=== PATIENT | male | born 1975 | race Caucasian/White ===

== ENCOUNTER 2023-01-08 12:48 | Outpatient (CLI) | payer BC, SELFPAY ==
--- NOTE | ~2023-01-08 | MR_ITS ---
EXAMINATION: MR knee LT wo con DATE: 01/08/2023 13:34 INDICATION: Acute medial meniscal tear of the left knee. TECHNIQUE: Magnetic resonance imaging (MRI) of the left knee was performed without intravenous contra st. Sequences included coronal PD-weighted FSE, coronal PD-weighted FS FSE, sagittal T2-weighted FSE , sagittal PD-weighted FS FSE and axial PD weighted fat saturated FSE. COMPARISON: None. FINDINGS: Medial compartment: Medial meniscus is normal. Partial-thickness chondral ulceration and deep fissuring with underlying s ubarticular edema-like marrow signal change at the anterior weightbearing medial femoral condyle. Les s severe shallow chondral ulceration without degenerative subchondral changes along the central weigh tbearing medial femoral condyle. Lateral compartment: Lateral meniscus is normal. Articular cartilage is normal. Patellofemoral compartment: Chondral fissuring involving greater than 50% the cartilage thickness at the cephalad aspect of the m edial patellar facet, the central aspect of the the patellar apical ridge and immediately adjacent la teral facet and more prominently with subarticular edema-like signal change along the inferior margin of the lateral patellar facet. Additional chondral ulceration and deep fissuring with underlying cor tical irregularity and edema-like signal change at the inferior aspect of the medial trochlea and tro chlear groove. Cartilage at the lateral trochlea is normal. Ligaments and tendons: Anterior and posterior cruciate ligaments are normal. The medial collateral ligament and fibular kaylan ateral ligament complex are normal. Mild distal quadriceps tendinopathy. Patellar tendon is normal. T he visualized medial and lateral hamstring tendons as well as the iliotibial band are normal. Fluid: Moderate-sized left knee joint effusion. No loose osteochondral bodies identified. Mild edema in the soft tissues at the periphery of a small Menard's cyst. Osseous/other: Bone alignment is normal. No fracture or pathologic marrow replacing process. IMPRESSION: 1. Mild osteoarthritis with regions of high-grade chondromalacia in the medial and patellofemoral com partments. 2. Moderate-sized left knee joint effusion and small Menard's cyst. 2. Normal menisci and stabilizing ligaments of the knee. Reviewed, dictated and finalized at location A. IMPRESSION: 1. 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 2. Moderate-sized left knee joint effusion and small Menard's cyst. 2. Normal menisci and stabilizing ligaments of the knee.
== END 2023-01-08 12:49 ==
PROVIDERS: PCP Student in an Organized Health Care Education/Training Program; Visit Provider Physician Assistant
DX: S83.242A Other tear of medial meniscus, current injury, left knee, initial encounter (principal); M71.22 Synovial cyst of popliteal space [Baker], left knee; X58.XXXA Exposure to other specified factors, initial encounter; M17.12 Unilateral primary osteoarthritis, left knee; M25.462 Effusion, left knee
CPT/HCPCS: 73721

== ENCOUNTER 2023-11-23 02:50 | Day surgery (SDC) | payer BC, SELFPAY ==
[2023-11-05 11:56] VITALS: BMI 24.1
[2023-11-23 10:01] VITALS: BP 127/84; PULSE 50; RESP 18; TEMP 36.1; O2SAT 99; BMI 21.7
--- NOTE | 2023-11-23 10:07 | WPDANESEPPF ---
Anes - Initial Pre Proc Eval Procedure: Operation Date: 11/23/23 11:00 Proposed Procedures p Screening Colonoscopy - Anthony Kent MD Date/Time: 11/23/23 10:07 Surgeon: Anthony Kent MD Pre Op Diagnosis: neoplasm screening Patient Data Age: 48 Gender: M Height: 1.78 m Weight: 68.7 kg Last Vital Signs Temp 97.0 F L 11/23/23 10:01 Pulse 50 L 11/23/23 10:01 Resp 18 11/23/23 10:01 BP 127/84 11/23/23 10:01 Pulse Ox 99 11/23/23 10:01 O2 Del Method Room Air 11/23/23 10:01 Allergies Allergy/AdvReac Type Severity Reaction Status Date / Time Penicillins Allergy Severe Shakiness Verified 11/23/23 10:00 adhesive tape Allergy Intermediate Rash Verified 11/23/23 10:00 Home Medications Medication Instructions Recorded Confirmed Type Adults Multivitamin 1 tab-cap PO DAILY 11/05/23 11/23/23 History meloxicam 15 mg tablet 15 mg PO DAILY PRN KNEE PAIN 11/05/23 11/23/23 History Patient hx anesthesia problems: none Family hx anesthesia problems: none Results Review: All pre-operative results and documents have been reviewed as part of the pre-operative evaluation. [facility] Family History Family History Other Family history of coronary artery disease Family history of malignant neoplasm Hypertension Malignant neoplasm of prostate Social History Social History Smoking status: Former smoker Tobacco type: cigarettes Smoking end date: 03/09/12 Alcohol intake: current Drinks per week: 8 Alcohol use details: BEERS Substance use: never Substance use type: does not use Living arrangements: with family Spiritual care concerns: No Anes - Eval Final PreProcedure Day of Procedure 11/23/23 10:07 Patient weight: normal Heart: regular rate and rhythm Lungs: clear to auscultation Airway: Mallampati scale Neurological: alert and oriented Last oral intake: >/= 8 hours ASA classification: I Emergent: no Anesthetic plan: proceed Anesthesia type and monitoring: general GIVS and standard monitoring Results Review: All pre-operative results and documents have been reviewed as part of the pre-operative evaluation. Pt very active w crossfit 4 x weekly, no cp or sob. Informed Consent: The patient's anesthetic plan and its attendant risks and benefits were discussed with the patient/family/POA. Questions were solicited and answers provided to the satisfaction of the patient/family/POA.
[2023-11-23] MEDS: LACTATED RINGERS 1,000 ML 150 ML IV CONT (10:10)
--- NOTE | 2023-11-23 11:13 | PM.HPGS ---
History of Present Illness History of Present Illness Consent: Risks, benefits, and alternatives have been discussed and questions answered. Patient agrees to proceed with procedure. Chief complaint: neoplasm screening Narrative: Getachew Yusuf is a 48 year old male here for first screening colonoscopy Review of Systems Review of Systems: All systems reviewed & are unremarkable except as noted in HPI and below PMFSH Past Medical History Medical History (Updated 11/23/23 @ 11:13 by Anthony Kent MD) Colon cancer screening Family History Family History Other Family history of coronary artery disease Family history of malignant neoplasm Hypertension Malignant neoplasm of prostate Social History Social History Smoking status: Former smoker Tobacco type: cigarettes Smoking end date: 03/09/12 Alcohol intake: current Drinks per week: 8 Alcohol use details: BEERS Substance use: never Substance use type: does not use Living arrangements: with family Spiritual care concerns: No Meds Home Medications and Allergies Home Medications Medication Instructions Recorded Confirmed Type Adults Multivitamin 1 tab-cap PO DAILY 11/05/23 11/23/23 History meloxicam 15 mg tablet 15 mg PO DAILY PRN KNEE PAIN 11/05/23 11/23/23 History Allergies Allergy/AdvReac Type Severity Reaction Status Date / Time Penicillins Allergy Severe Shakiness Verified 11/23/23 10:00 adhesive tape Allergy Intermediate Rash Verified 11/23/23 10:00 Vital Signs Vital Signs - 24 hr 11/23/23 10:01 Temperature 97.0 F L Pulse Rate 50 L Respiratory Rate 18 Blood Pressure 127/84 Pulse Oximetry 99 Oxygen Delivery Room Air Exam Const: General: comfortable and no acute distress HENMT: Face/Nose/Sinus: Normal nares present Eyes: General: appearance normal, both eyes and all related structures Neck: Neck: no JVD Resp: Auscultation: clear to auscultation bilaterally Cardio: Rate: regular rate Rhythm: regular rhythm GI: Inspection: non-distended GI Palp: Yes Soft to palpation Skin: General skin exam: normal color Neuro: General: gait normal Speech: normal speech Extrem: General: normal to inspection Psych: Mental Status: mental status grossly normal Assessment and Plan Assessment and plan (1) Colon cancer screening: Code(s): Z12.11 - Encounter for screening for malignant neoplasm of colon Status: Acute Assessment and Plan: colonoscopy
[2023-11-23 11:26] VITALS: BP 96/59; PULSE 43; RESP 15; O2SAT 99
[2023-11-23 11:36] VITALS: BP 120/81; PULSE 49; RESP 16; O2SAT 100
[2023-11-23 11:46] VITALS: BP 118/79; PULSE 45; RESP 16; O2SAT 100
== END 2023-11-23 11:50 | disposition home or self-care (01) ==
PROVIDERS: PCP Family Medicine; Visit Provider Internal Medicine Gastroenterology
PROC: 0DJD8ZZ Inspection of Lower Intestinal Tract, Via Natural or Artificial Opening Endoscopic (ICD-10-PCS; CPT 45378; principal; 2023-11-23 11:00)
DX: Z12.11 Encounter for screening for malignant neoplasm of colon (principal); K64.8 Other hemorrhoids; Z87.891 Personal history of nicotine dependence; Z80.42 Family history of malignant neoplasm of prostate; Z82.49 Family history of ischemic heart disease and other diseases of the circulatory system
CPT/HCPCS: 45378; J7120